=== PATIENT | male | born 1980 | race Two or more races ===

== ENCOUNTER 2025-08-31 08:33 | Emergency (ER) | payer OTHER ==
[~2025-08-31] VITALS: Ht 175.3 cm; Wt 65.8 kg
[2025-08-31] MEDS ORDERED: FAMOTIDINE/PF 20 MG/2 ML VIAL ONE ×2 (09:20→10:50)
[2025-08-31] MEDS ORDERED: ONDANSETRON HCL 2 MG/ML VIAL ONE ×2 (09:20→10:50)
[2025-08-31] MEDS ORDERED: ONDANSETRON HCL 2 MG/ML VIAL IV ONE (09:30)
[2025-08-31] MEDS ORDERED: 0.9 % SODIUM CHLORIDE 1,000 ML IV SCH (09:30)
[2025-08-31] MEDS ORDERED: FAMOTIDINE/PF 20 MG/2 ML VIAL IV ONE (09:30)
[2025-08-31 10:08] LABS: BASO % 0.6 % (0.1-1.2); EOS # 0.02 (0.04-0.54); EOS % 0.6 % (0.7-7.0); LYMPH # 1.19 (1.18-3.74); LYMPH % 33.1 % (19.3-53.1); MEAN PLATELET VOLUME 9.40 fl (9.4-12.4); MONO # 0.37 (0.24-0.82); MONO % 10.3 % (4.7-12.5); NEUT # 1.99 (1.56-6.13); NEUT % 55.4 % (34.0-71.1); RED CELL DISTRIBUTION WIDTH 11.9 % (11.6-14.4)
[2025-08-31 10:17] LABS: ERYTHROCYTE SEDIMENTATION RATE 13 mm/hr (0-15)
[2025-08-31 10:31] LABS: URINE APPEARANCE Clear; URINE BILIRRUBIN Negative (NEGATIVE); URINE BLOOD Negative; URINE COLOR Yellow; URINE GLUCOSE Negative (NEGATIVE); URINE LEUKOCYTE Negative; URINE NITRATE Negative; URINE PROTEIN Negative (NEGATIVE); URINE UROBILINOGEN 0.2 E.U./dl
[2025-08-31 10:36] LABS: URINE BACTERIA 0 uL (0.0-1933); URINE CAST 0.00 uL (0.0-1.40); URINE EPITHELIAL CELLS 0.9 uL (0.0-38.8); URINE KETONE 80 (NEGATIVE); URINE RBC 0.2 uL (0.0-20.8); URINE WBC 0.6 uL (0.0-23.2)
[2025-08-31 11:05] LABS: ALT/SGPT 49 U/L (12-78); AST/SGOT 34 U/L (15-37); BILIRUBIN TOTAL 0.60 mg/dL (0.3-1.2); BUN CREA RATIO 8 (7.0-25.0); CREATININE SERUM 0.90 mg/dL (0.70-1.30); GFR 91.67; GLOBULINA 4.3 G/DL (2.4-3.5); GLUCOSE FASTING 90 mg/dL (65-100); OSMOLALITY SERUM 271 MOSM/KG (275-295)
[2025-08-31] MEDS ORDERED: MORPHINE SULFATE 4 MG/ML CARTRIDGE IV ONE (15:15)
[2025-08-31] MEDS ORDERED: METRONIDAZOLE/SODIUM CHLORIDE 500 MG/100 ML PIGGYBACK IV ONE ×2 (15:15→15:33)
[2025-08-31] MEDS ORDERED: CIPROFLOXACIN IN 5 % DEXTROSE 400 MG/200 ML PIGGYBAG IV ONE ×2 (15:15→15:33)
[2025-08-31] MEDS ORDERED: METRONIDAZOLE500 MG PO (18:17)
[2025-08-31] MEDS ORDERED: PROTONIX40 MG PO (18:17)
[2025-08-31] MEDS ORDERED: CIPRO500 MG PO (18:17)
[2025-08-31] MEDS ORDERED: KETO10TA2 PO (18:17)
== END 2025-08-31 20:23 | disposition home or self-care (01) ==
LOC: ER 08:33
PROVIDERS: Student in an Organized Health Care Education/Training Program
DX: K57.32 Diverticulitis of large intestine without perforation or abscess without bleeding (principal); K85.90 Acute pancreatitis without necrosis or infection, unspecified; K29.00 Acute gastritis without bleeding; K21.9 Gastro-esophageal reflux disease without esophagitis
CPT/HCPCS: 36415; 74177; Q9965